=== PATIENT | female | born 1945 | race Caucasian/White ===

== ENCOUNTER 2018-04-29 15:42 | Emergency (ER) | payer OTHER ==
[~2018-04-29] VITALS: Ht 177.8 cm; Wt 73.0 kg
[~2018-04-29 15:42] MED LIST: ASPI-496 PO
[2018-04-29 15:47] VITALS: BP 128/62
[2018-04-29] MEDS ORDERED: BACITRACIN ZINC OINT 500U/GM, 0.9 GM ONE (16:10)
== END 2018-04-29 16:37 | disposition home or self-care (01) ==
LOC: ED 16:31
DX: S51.801D Unspecified open wound of right forearm, subsequent encounter (principal)
CPT/HCPCS: 99283

== ENCOUNTER 2018-05-01 15:39 | Emergency (ER) | payer OTHER ==
[~2018-05-01] VITALS: Ht 175.3 cm; Wt 69.8 kg
[2018-05-01 15:44] VITALS: BP 128/73
== END 2018-05-01 16:12 | disposition home or self-care (01) ==
LOC: ED 16:06
DX: S51.801D Unspecified open wound of right forearm, subsequent encounter (principal); X58.XXXD Exposure to other specified factors, subsequent encounter
CPT/HCPCS: 99283

== ENCOUNTER 2018-09-05 12:42 | Emergency (ER) | payer OTHER ==
[~2018-09-05] VITALS: Ht 177.8 cm; Wt 73.4 kg
[2018-09-05 12:45] VITALS: BP 132/74
[2018-09-05] MEDS ORDERED: DIPH,PERTUSS(ACELL),TET VAC/PF 0.5 ML IM-VACC ONE ×2 (13:00→13:26)
[2018-09-05] MEDS ORDERED: BACITRACIN ZINC OINT 500U/GM, 0.9 GM ONE (13:26)
[2018-09-05 13:32] LABS: BASOPHILS # (AUTO) 0.01 x10^3/uL (0-0.1); BASOPHILS % (AUTO) 0 % (0-1); EOSINOPHILS # (AUTO) 0.04 x10^3/uL (0-0.4); EOSINOPHILS % (AUTO) 1 % (1-7); LYMPHOCYTES % (AUTO) 27 % (22-44); MD NO; MEAN CORPUSCULAR HEMOGLOBIN 29.2 pg (27.0-34.8); MEAN CORPUSCULAR VOLUME 88.6 fL (80-100); MEAN PLATELET VOLUME 8.5 fL (7.4-10.4); MONOCYTES # (AUTO) 0.42 x10^3/uL (0.2-0.8); MONOCYTES % (AUTO) 10 % (2-9); NEUTROPHILS # (AUTO) 2.51 x10^3/uL (1.8-6.8); NEUTROPHILS % (AUTO) 61 % (42-75); PLATELET COUNT 200 x10^3/uL (130-400); RED BLOOD COUNT 4.71 x10^6/uL (3.82-5.3); RED CELL DISTRIBUTION WIDTH 15.6 % (9.6-15.2)
[2018-09-05 13:43] LABS: ALBUMIN 3.4 g/dL (3.4-5.0); ANION GAP 9 mmol/L (5-15); CHLORIDE 104 mmol/L (98-107)
--- NOTE | 2018-09-05 14:10 | NUR ---
PT REFUSING XRAY
== END 2018-09-05 14:56 | disposition home or self-care (01) ==
LOC: ED 14:41
DX: S51.851A Open bite of right forearm, initial encounter (principal); W55.01XA Bitten by cat, initial encounter; Y93.89 Activity, other specified; Y92.009 Unspecified place in unspecified non-institutional (private) residence as the place of occurrence of the external cause; Y99.8 Other external cause status
CPT/HCPCS: 36415; 80048; 82040; 85025; 90471; 90715; 99283

== ENCOUNTER 2019-01-19 17:41 | Emergency (ER) | payer OTHER ==
[~2019-01-19] VITALS: Ht 177.8 cm; Wt 70.3 kg
[2019-01-19 17:53] VITALS: BP 148/78
[2019-01-19] MEDS ORDERED: OXYcodone/APAP 5/325MG TABLET ONE (18:08)
[2019-01-19] MEDS ORDERED: L.E.T SOLUTION TP ONE ×2 (18:12→18:30)
[2019-01-19] MEDS ORDERED: DIPH,PERTUSS(ACELL),TET VAC/PF 0.5 ML IM-VACC ONE ×2 (18:28→19:00)
== END 2019-01-19 19:31 | disposition home or self-care (01) ==
LOC: ED 19:15
DX: S51.851A Open bite of right forearm, initial encounter (principal); W54.0XXA Bitten by dog, initial encounter; Y93.01 Activity, walking, marching and hiking; Y92.89 Other specified places as the place of occurrence of the external cause; Y99.8 Other external cause status
CPT/HCPCS: 90471; 90715; 99283

== ENCOUNTER 2019-01-23 14:37 | Emergency (ER) | payer OTHER ==
[~2019-01-23] VITALS: Ht 177.8 cm; Wt 70.6 kg
[2019-01-23 15:20] VITALS: BP 122/72
== END 2019-01-23 16:00 | disposition home or self-care (01) ==
LOC: ED 15:54
DX: S51.811A Laceration without foreign body of right forearm, initial encounter (principal); W54.0XXA Bitten by dog, initial encounter; Y93.89 Activity, other specified; Y92.89 Other specified places as the place of occurrence of the external cause; Y99.8 Other external cause status
CPT/HCPCS: 12032; 99284

== ENCOUNTER 2019-01-27 12:34 | Emergency (ER) | payer OTHER ==
[~2019-01-27] VITALS: Ht 177.8 cm; Wt 70.9 kg
[2019-01-27 12:36] VITALS: BP 139/48
--- NOTE | 2019-01-27 13:28 | NUR ---
Patient/Caregiver given discharge instructions and they have confirmed that they understand the instructions. Patient ambulatory with steady gait.
== END 2019-01-27 13:29 | disposition home or self-care (01) ==
LOC: ED 13:18
DX: S61.551A Open bite of right wrist, initial encounter (principal); W54.0XXA Bitten by dog, initial encounter; Y93.89 Activity, other specified; Y92.89 Other specified places as the place of occurrence of the external cause; Y99.8 Other external cause status
CPT/HCPCS: 99282

== ENCOUNTER 2019-02-02 07:55 | Emergency (ER) | payer OTHER ==
[~2019-02-02] VITALS: Ht 177.8 cm; Wt 70.6 kg
[2019-02-02 07:57] VITALS: BP 138/65
--- NOTE | 2019-02-02 08:17 | NUR ---
PT SEEN BY MD AND UPDATED ON POC. PT GIVEN BAND-AIDS FOR FUTURE DRESSING CHANGES ON WOUND.
== END 2019-02-02 08:38 | disposition home or self-care (01) ==
LOC: ED 08:31
DX: S61.511D Laceration without foreign body of right wrist, subsequent encounter (principal); W54.0XXD Bitten by dog, subsequent encounter
CPT/HCPCS: 99282

== ENCOUNTER 2019-04-23 01:48 | Emergency (ER) | payer OTHER ==
[~2019-04-23] VITALS: Ht 177.8 cm; Wt 68.0 kg
--- NOTE | 2019-04-23 02:01 | NUR ---
PER EMS, A BEDBUG WAS FOUND ON PT WHILE IN AMBULANCE AND PT ADMITS TO HAVING BEDBUGS. PT PROVIDED DECONTAMINATION SHOWER AND PT AMBULATORY FROM SHOWER TO ROOM WITH STEADY GAIT.
--- NOTE | 2019-04-23 02:03 | NUR ---
RIGHT SIDED CHEST PAIN THAT STARTED AROUND 0100 THIS MORNING. "I HAVE A SHARP PAIN WHEN I BREATH IN" WHEN ASKED HOW BAD IS YOUR PAIN ON A SCALE OF 0-10 PT STATES SHE IS NOT ABLE TO EVALUATE IT. NITRO SL AND 324 ASA GIVEN BY [facility] EN ROUTE.
--- NOTE | 2019-04-23 02:06 | NUR ---
PT RESTING ON GURNEY. SIDE RAILS UP. CALL LIGHT WITHIN REACH.
[2019-04-23 02:33] LABS: BASOPHILS # (AUTO) 0.03 x10^3/uL (0-0.1); BASOPHILS % (AUTO) 1 % (0-1); EOSINOPHILS # (AUTO) 0.09 x10^3/uL (0-0.4); EOSINOPHILS % (AUTO) 2 % (1-7); LYMPHOCYTES # (AUTO) 1.25 x10^3/uL (1-3.4); LYMPHOCYTES % (AUTO) 31 % (22-44); MD NO; MEAN CORPUSCULAR HGB CONC 32.7 g/dL (32.4-35.8); MEAN CORPUSCULAR VOLUME 94.5 fL (80-100); MEAN PLATELET VOLUME 7.9 fL (7.4-10.4); MONOCYTES # (AUTO) 0.33 x10^3/uL (0.2-0.8); MONOCYTES % (AUTO) 8 % (2-9); NEUTROPHILS # (AUTO) 2.31 x10^3/uL (1.8-6.8); NEUTROPHILS % (AUTO) 58 % (42-75); PLATELET COUNT 148 x10^3/uL (130-400); RED BLOOD COUNT 4.18 x10^6/uL (3.82-5.3); RED CELL DISTRIBUTION WIDTH 13.9 % (9.6-15.2)
[2019-04-23 02:45] LABS: ALANINE AMINOTRANSFERASE 16 U/L (12-78); ALBUMIN 3.1 g/dL (3.4-5.0); ANION GAP 7 mmol/L (5-15); CALCIUM 8.5 mg/dL (8.5-10.1); CHLORIDE 107 mmol/L (98-107); CREATININE 1.31 mg/dL (0.55-1.02)
[2019-04-23 02:49] LABS: ALKALINE PHOSPHATASE 73 U/L (45-117); BILIRUBIN,TOTAL 0.3 mg/dL (0.2-1.0); TOTAL PROTEIN 6.4 g/dL (6.4-8.2); TROPONIN I < 0.015 ng/mL (0.000-0.045)
[2019-04-23 03:42] VITALS: BP 129/58
--- NOTE | 2019-04-23 03:42 | NUR ---
PT RESTING ON GURNEY. NO ACUTE DISTRESS NOTED. PT PROVIDED A PILLOW, LIGHTS DIMMED PER PT REQUEST.
== END 2019-04-23 04:19 | disposition home or self-care (01) ==
LOC: ED 04:01
DX: R07.89 Other chest pain (principal)
CPT/HCPCS: 36415; 71045; 80053; 84484; 85025; 93005; 99284

== ENCOUNTER 2019-06-13 06:05 | Emergency (ER) | payer MEDICARE, OTHER ==
[~2019-06-13] VITALS: Ht 177.8 cm; Wt 72.4 kg
[2019-06-13 06:08] VITALS: BP 134/40
[2019-06-13] MEDS ORDERED: KETOROLAC 30 MG/1 ML IM ONE (06:30)
[2019-06-13] MEDS ORDERED: DIAZEPAM 5 MG TABLET PO ONE (06:30)
[2019-06-13] MEDS ORDERED: DIAZEPAM 5 MG TABLET ONE (06:33)
[2019-06-13] MEDS ORDERED: KETOROLAC 30 MG/1 ML ONE (06:33)
--- NOTE | 2019-06-13 06:55 | NUR ---
[facility] HAND-OFF REPORT RECEIVED FROM RN MIHIR. ASSUMING CARE OF PATIENT.
--- NOTE | 2019-06-13 08:05 | NUR ---
Patient/Caregiver given discharge instructions and they have confirmed that they understand the instructions. Patient ambulatory with steady gait.
== END 2019-06-13 08:06 | disposition home or self-care (01) ==
LOC: ED 08:00
DX: S39.012A Strain of muscle, fascia and tendon of lower back, initial encounter (principal); X58.XXXA Exposure to other specified factors, initial encounter; Y93.89 Activity, other specified; Y92.89 Other specified places as the place of occurrence of the external cause; Y99.8 Other external cause status
CPT/HCPCS: 72110; 96372; 99283; J1885

== ENCOUNTER 2019-09-10 16:59 | Emergency (ER) | payer OTHER ==
[~2019-09-10] VITALS: Ht 177.8 cm; Wt 74.4 kg
--- NOTE | 2019-09-10 17:57 | NUR ---
NO ANSWER FROM TRIAGE
[2019-09-10 18:04] VITALS: BP 153/54
[2019-09-10] MEDS ORDERED: DIPH,PERTUSS(ACELL),TET VAC/PF 0.5 ML IM-VACC ONE ×2 (18:21→18:30)
[2019-09-10] MEDS ORDERED: LIDOCAINE-MPF 1%, 5ML ONE (18:28)
[2019-09-10] MEDS ORDERED: LIDOCAINE-MPF 1%, 5ML INFIL ONE (18:30)
--- NOTE | 2019-09-10 18:54 | NUR ---
RT HAND VS DOG
[2019-09-10] MEDS ORDERED: NEOSPORIN OINT. PKT 1 PACKET ONE (19:31)
--- NOTE | 2019-09-10 19:49 | NUR ---
raquel hawkins rn given dc instruction pt understood
== END 2019-09-10 19:50 | disposition home or self-care (01) ==
LOC: ED 19:49
DX: S60.571A Other superficial bite of hand of right hand, initial encounter (principal); X58.XXXA Exposure to other specified factors, initial encounter; Y93.89 Activity, other specified; Y92.488 Other paved roadways as the place of occurrence of the external cause; Y99.8 Other external cause status
CPT/HCPCS: 12001; 90471; 90715; 99283

== ENCOUNTER 2019-09-12 11:34 | Emergency (ER) | payer OTHER ==
[~2019-09-12] VITALS: Ht 177.8 cm; Wt 72.4 kg
[2019-09-12 11:53] VITALS: BP 135/47
--- NOTE | 2019-09-12 12:36 | NUR ---
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
--- NOTE | 2019-09-12 12:48 | NUR ---
PT STATES HE WAS HERE 2 DAYS AGO FOR A DOG BITE TO R HAND. PT HAD SUTURES PLACED WAS GIVEN ABX AND HE NEVER FILLED THEM. PT STATES R HAND NOTED TO HAVE INCREASED SWELLING AND ERYTHMA
[2019-09-12] MEDS ORDERED: AMPICILLIN/SULBACTAM 3 GM in SODIUM CHLORIDE 0.9% 100 ML IV ONE (13:00)
--- NOTE | 2019-09-12 13:28 | NUR ---
PIV INITITATED, PT MEDICATED PER MAR
== END 2019-09-12 14:53 | disposition home or self-care (01) ==
LOC: ED 14:42
DX: S60.571A Other superficial bite of hand of right hand, initial encounter (principal); L03.113 Cellulitis of right upper limb; X58.XXXA Exposure to other specified factors, initial encounter; Y93.89 Activity, other specified; Y92.488 Other paved roadways as the place of occurrence of the external cause; Y99.8 Other external cause status
CPT/HCPCS: 96365; 99283; J0295

== ENCOUNTER 2021-04-23 10:44 | Inpatient (IN) | payer OTHER ==
[~2021-04-23] VITALS: Ht 165.1 cm; Wt 52.3 kg
--- NOTE | 2021-04-23 11:07 | NUR ---
BIB EMS FROM HOME AFTER [facility] CHECK. NEIGHBORS CALLED IT IN SINCE THEY HADN'T SEEN PT IN 4 DAYS. POLICE ARRIVED AND FOUND PT IN BED. PT HASN'T GOTTEN OUT OF BED, EATEN MUCH, OR BATHED. PT BROUGHT IN FOR FAILURE TO THRIVE. [facility] CALLED. THEY DID NOT REACH OUT TO THEM. 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 PT RESTING ON GURNEY. NADN. MONITORS APPLIED. VSS. WARM BLANKET PROVIDED. CALL LIGHT IN REACH. PT DENIES SI/HI. DOES NOT SEE A REASON TO BE IN ED. STATES SHE DOESN'T SHOWER OFTEN AND DOES EAT. DENYING ALL CLAIMS. PT APPEARS DISHEVELED AND DIRTY. DRINKING PO FLUIDS IN ED W/O ISSUES.
--- NOTE | 2021-04-23 11:25 | NUR ---
PT RESTING ON GURNEY. NADN. LIMON.
[2021-04-23] MEDS ORDERED: SODIUM CHLORIDE 0.9% 1,000ML IVBOLUS ONE (12:00)
--- NOTE | 2021-04-23 12:22 | NUR ---
PT RESTING ON GURNEY. NADN. LIMON.
--- NOTE | 2021-04-23 12:23 | NUR ---
C[employer] NOTIFIED OF PT.
[2021-04-23 12:26] LABS: BASOPHILS % (AUTO) 1 % (0-1); EOSINOPHILS % (AUTO) 1 % (1-7); LYMPHOCYTES % (AUTO) 22 % (22-44); MEAN CORPUSCULAR HEMOGLOBIN 30.2 pg (27.0-34.8); MEAN CORPUSCULAR HGB CONC 33.5 g/dL (32.4-35.8); MEAN PLATELET VOLUME 8.5 fL (7.4-10.4); MONOCYTES % (AUTO) 8 % (2-9); NEUTROPHILS % (AUTO) 68 % (42-75); PLATELET COUNT 226 x10^3/uL (130-400); RED BLOOD COUNT 5.04 x10^6/uL (3.82-5.3); RED CELL DISTRIBUTION WIDTH 15.5 % (9.6-15.2)
[2021-04-23 12:28] LABS: ALANINE AMINOTRANSFERASE 12 U/L (12-78); ALBUMIN 3.4 g/dL (3.4-5.0); ANION GAP 16 mmol/L (5-15); CALCIUM 9.2 mg/dL (8.5-10.1); CHLORIDE 95 mmol/L (98-107); CREATININE 1.73 mg/dL (0.55-1.02); SALICYLATE LEVEL 2.2 mg/dL (2.8-20.0)
[2021-04-23 12:38] LABS: ALKALINE PHOSPHATASE 53 U/L (45-117); BILIRUBIN,TOTAL 0.9 mg/dL (0.2-1.0); TOTAL PROTEIN 7.5 g/dL (6.4-8.2)
[2021-04-23 12:52] LABS: MICROSCOPIC INDICATED
[2021-04-23 13:03] LABS: AMPHETAMINE SCREEN, URINE Negative (Negative); BARBITURATE SCREEN, URINE Negative (Negative); BENZODIAZEPINE SCREEN, URINE Negative (Negative); CANNABINOID SCREEN, URINE Negative (Negative); COCAINE SCREEN, URINE Negative (Negative); METHADONE SCREEN, URINE Negative (Negative); OPIATE SCREEN, URINE Negative (Negative)
--- NOTE | 2021-04-23 13:10 | NUR ---
ASSUMED CARE OF PATIENT. REPORT GIVEN FROM KENNEDI RALPH
--- NOTE | 2021-04-23 13:15 | NUR ---
SPOKE WITH [facility] RESEARCH PHYSICIAN. RESEARCH PHYSICIAN REPORTS PT OKAYED FOR HER TO CALL SISTER. NO ANSWER.
--- NOTE | 2021-04-23 13:17 | NUR ---
REPORT GIVEN TO KENNEDI POZO.
--- NOTE | 2021-04-23 13:21 | NUR ---
SPOKE TO DR VICTOR. NO BLOOD CULTURES NEEDED BEFORE ABX.
[2021-04-23] MEDS ORDERED: CEFTRIAXONE 1,000 MG in DEXTROSE 5% 50 ML IVPB ONE (13:30)
--- NOTE | 2021-04-23 13:40 | NUR ---
DECLINED BY [facility]. SPOKE WITH KENNEDI EASON
--- NOTE | 2021-04-23 13:43 | NUR ---
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 ([phone])
[2021-04-23 14:31] VITALS: BP 134/69
[2021-04-23] MEDS ORDERED: HEPARIN 5,000 UNITS/ML, 1ML SQ SCH (15:30)
[2021-04-23] MEDS ORDERED: ONDANSETRON 2MG/ML, 2ML IVPush PRN (15:30)
[2021-04-23] MEDS ORDERED: LABETALOL 5MG/ML, 20ML IVPush PRN (15:30)
[2021-04-23] MEDS ORDERED: POLYETHYLENE GLYCOL 17 GM PACKET PO PRN (15:30)
[2021-04-23] MEDS ORDERED: ACETAMINOPHEN 325 MG TABLET PO PRN (15:30)
[2021-04-23] MEDS ORDERED: DOCUSATE 100 MG CAPSULE PO PRN (15:30)
[2021-04-23] MEDS ORDERED: NS + 20MEQ KCL 1,000 ML IV SCH (15:30)
[2021-04-23] MEDS ORDERED: HYDROcodone/APAP 5/325 TABLET PO PRN (15:30)
[2021-04-23] MEDS ORDERED: MORPHINE SULFATE 4 MG/ML, 1ML IVPush PRN (15:30)
[2021-04-24] MEDS ORDERED: CEFTRIAXONE 1,000 MG in DEXTROSE 5% 50 ML IVPB SCH (13:30)
[2021-04-28] MEDS ORDERED: ACET325T26 PO (14:22)
== END 2021-04-23 16:11 | disposition left against medical advice (07) | DRG 689 ==
LOC: ED 13:15 → SUATTDRO 13:35 → 3N 15:19
PROVIDERS: ADMIT Internal Medicine; ATTEND Internal Medicine
DX: N39.0 Urinary tract infection, site not specified (principal); G93.41 Metabolic encephalopathy; N17.0 Acute kidney failure with tubular necrosis; E87.1 Hypo-osmolality and hyponatremia; E05.90 Thyrotoxicosis, unspecified without thyrotoxic crisis or storm; E87.6 Hypokalemia; H91.90 Unspecified hearing loss, unspecified ear; R62.7 Adult failure to thrive
CPT/HCPCS: 36415; 80053; 80299; 80307; 80320; 80329; 81001; 84439; 84443; 84481; 85025; 87077; 87086; 87186; 99285; G0378; J0696; G0480; J7030